=== PATIENT | female | born 1990 | race Two or more races ===

== ENCOUNTER 2018-08-10 07:07 | Emergency (ER) | payer BC ==
[2018-08-10 07:41] LABS: URINE BLOOD (Dip) POC Trace-lysed (NEGATIVE); URINE GLUCOSE (Dip) POC Negative (NEGATIVE); URINE KETONES (Dip) POC Negative (NEGATIVE); URINE LEUKOCYTE EST (Dip) POC Negative (NEGATIVE); URINE NITRITE (Dip) POC Negative (NEGATIVE); URINE TOTAL PROTEIN POC Trace (NEGATIVE)
[2018-08-10 07:41] LABS: URINE PH (Dip) POC 5.5 (5.0-8.5)
[2018-08-10] MEDS: KETOROLAC 30 MG INJ IM (07:53)
== END 2018-08-10 08:19 | disposition home or self-care (01) ==
LOC: FTE 07:07
DX: M54.41 Lumbago with sciatica, right side (principal); E11.9 Type 2 diabetes mellitus without complications
CPT/HCPCS: 81003; 81025; 96372; 99284-25